=== PATIENT | female | born 1990 | race Caucasian/White ===

== ENCOUNTER 2021-04-15 15:46 | Emergency (ER) | payer OTHER ==
[~2021-04-15 15:46] MED LIST: ASPIRIN EC81 MG PO; DEXAMETHAS0.5 MG/51 PO; ELAVIL10 MG PO; FIORICET1 EACH PO; FOLIC ACID1 MG PO; METFORMIN HCL500 MG PO; PRENATAL FORMU1 EACH PO; SYMBICORT 80-10.2 GM INH; VENTOLIN HFA IN18 GM INH; VITAMIN D-32000 UNI1 PO
[2021-04-15 16:24] LABS: BASOPHIL 0.2 % (0-2); EOSINOPHIL 0.7 % (0-5); HCT 42.4 % (37.0-47.0); HGB 13.8 g/dl (12.5-16.0); MCH 30.3 pg (25.0-31.0); MCHC 32.5 g/dL (32.0-36.0); MPV 10.8 fL (6.0-9.5); NEUTROPHIL 80.7 % (41-80); NRBC 0; PLT 179 K/uL (150-400); RBC 4.56 M/uL (4.20-5.40); RDW 13.6 % (11.5-14.0); WBC 12.4 K/uL (4.0-10.5)
[2021-04-15 16:48] LABS: BUN/CREAT RATIO (CALC) 20.8 RATIO; CREATININE 0.72 mg/dL (0.51-0.95); POTASSIUM 4.2 mmol/L (3.5-5.1)
== END 2021-04-15 19:01 | disposition home or self-care (01) ==
LOC: FER 15:46
PROVIDERS: Nurse Practitioner Family
DX: R09.89 Other specified symptoms and signs involving the circulatory and respiratory systems (principal); R07.89 Other chest pain; J45.909 Unspecified asthma, uncomplicated; F17.210 Nicotine dependence, cigarettes, uncomplicated; Z88.8 Allergy status to other drugs, medicaments and biological substances
CPT/HCPCS: 36415; 71250; 80048; 84484; 85025; 93005; J1100; J1610; J1885; J7030